=== PATIENT | female | born 1990 | race Caucasian/White ===

== ENCOUNTER 2020-01-31 07:53 | Outpatient (CLI) | payer MEDICAID ==
[2020-01-31 13:34] LABS: BASOPHILS % (AUTO) 0.7 %; EOSINOPHILS # (AUTO) 0.1 10^3/uL (0.0-0.7); LYMPHOCYTES # (AUTO) 2.2 10^3/uL (1.5-3.5); LYMPHOCYTES % (AUTO) 36.5 %; MEAN CORPUSCULAR HEMOGLOBIN 31.4 pg (27.0-31.0); MEAN CORPUSCULAR VOLUME 95.1 fL (81.0-99.0); MEAN PLATELET VOLUME 10.9 fL (7.9-10.8); MONOCYTES # (AUTO) 0.4 10^3/uL (0.0-1.0); MONOCYTES % (AUTO) 7.1 %; NEUTROPHILS # (AUTO) 3.3 10^3/uL (1.5-6.6); NEUTROPHILS % (AUTO) 54.4 %; PLT - PLATELET COUNT 235 10^3/uL (130-450); RED BLOOD COUNT 4.46 10^6/uL (4.20-5.40); RED CELL DISTRIBUTION WIDTH 12.2 % (12.0-15.0); WHITE BLOOD COUNT 6.1 x10^3/uL (4.8-10.8)
[2020-01-31 13:41] LABS: ALBUMIN 4.4 g/dL (3.2-5.5); ALBUMIN/GLOBULIN RATIO 1.8 (1.0-2.2); BILIRUBIN,TOTAL 0.9 mg/dL (0.2-1.0); CALCIUM 9.1 mg/dL (8.5-10.3); CREATININE 0.8 mg/dL (0.4-1.0); TOTAL PROTEIN 6.8 g/dL (6.7-8.2)
== END 2020-01-31 07:54 | disposition home or self-care (01) ==
LOC: LAB.S 07:53
PROVIDERS: ATTEND Registered Nurse
DX: F90.9 Attention-deficit hyperactivity disorder, unspecified type (principal); F41.9 Anxiety disorder, unspecified; F32.9 Major depressive disorder, single episode, unspecified
CPT/HCPCS: 36415; 80050

== ENCOUNTER 2020-02-29 08:00 | Outpatient (CLI) | payer MEDICAID | END 2020-02-29 23:59 | disposition home or self-care (01) | LOC: LAB.R 08:00 | PROVIDERS: ATTEND Physician Assistant | DX: R30.0 Dysuria (principal) | CPT/HCPCS: 87086 ==

== ENCOUNTER 2022-01-19 12:39 | Outpatient (CLI) | payer OTHER ==
[2022-01-19 13:08] LABS: BASOPHILS % (AUTO) 0.3 %; EOSINOPHILS # (AUTO) 0.1 10^3/uL (0.0-0.7); EOSINOPHILS % (AUTO) 0.8 %; HCT - HEMATOCRIT 39.9 % (37.0-47.0); HGB - HEMOGLOBIN 13.7 g/dL (12.0-16.0); LYMPHOCYTES # (AUTO) 2.6 10^3/uL (1.5-3.5); LYMPHOCYTES % (AUTO) 29.6 %; MEAN CORPUSCULAR HEMOGLOBIN 30.9 pg (27.0-31.0); MEAN CORPUSCULAR HGB CONC 34.3 g/dL (32.0-36.0); MEAN CORPUSCULAR VOLUME 90.1 fL (81.0-99.0); MEAN PLATELET VOLUME 9.7 fL (7.9-10.8); MONOCYTES # (AUTO) 0.4 10^3/uL (0.0-1.0); MONOCYTES % (AUTO) 5.1 %; NEUTROPHILS # (AUTO) 5.5 10^3/uL (1.5-6.6); PLT - PLATELET COUNT 222 10^3/uL (130-450); RED BLOOD COUNT 4.43 10^6/uL (4.20-5.40); RED CELL DISTRIBUTION WIDTH 11.9 % (12.0-15.0); WHITE BLOOD COUNT 8.7 x10^3/uL (4.8-10.8)
[2022-01-20 04:09] LABS: HBsAG SCREEN Negative (Negative); HCV AB <0.1 s/co ratio (0.0-0.9)
[2022-01-20 08:10] LABS: RPR Non Reactive (Non Reactive); VARICELLA-ZOSTER AB IGG 671 index (Immune >165)
[2022-01-20 09:09] LABS: HIV SCREEN 4TH GENERATION Non Reactive (Non Reactive)
== END 2022-01-19 12:40 | disposition home or self-care (01) ==
LOC: LAB 12:39
PROVIDERS: ATTEND Nurse Practitioner Obstetrics & Gynecology
DX: Z36.89 Encounter for other specified antenatal screening (principal); Z84.81 Family history of carrier of genetic disease
CPT/HCPCS: 36415; 81220; 81243; 81244; 81329; 85025; 85210; 86592; 86762; 86787; 86803; 86850; 86900; 86901; 87340; 87389

== ENCOUNTER 2022-04-20 06:57 | Outpatient (CLI) | payer BC, OTHER ==
--- NOTE | 2022-04-20 14:26 | Ultrasound Report ---
PROCEDURE: OB Detailed Eval INDICATIONS: SUPERVISION OF OUTSIDE/PRIOR DATING DATA: Last menstrual period (LMP): 11/10/2021. LMP-based estimated date of delivery (PATI): 08/17/2022. First dating scan (date and location): 01/11/2022, provider's office. Estimated date of delivery (PATI) from first dating scan: 08/13/2022. The below data below was generated using the ultrasound PATI of 08/13/2022 TECHNIQUE: Real-time scanning was performed of the fetus, with image documentation and biometric measurements. Endovaginal scanning: Not performed COMPARISON: None FINDINGS: General: A single living intrauterine gestation is present. Presentation: Breech Placenta: Placental position is posterior, without previa. Posterior placenta is 2.5 cm from the in ternal cervical os on transabdominal imaging. Amniotic fluid index: 13.3 cm, largest pocket is 3.63 cm. Normal for gestational age. heart rate: 150 beats per minute. Maternal cervical canal: Closed and 4.3 cm long; normal length is 2.5 cm or more. biometrics: Biparietal diameter: 5.74 cm, 23 weeks, 4 days Head circumference: 22.1 cm, 24 weeks, 1 day Abdominal circumference: 19.9 cm, 24 weeks, 4 days Femur length: 4.3 cm, 24 weeks, 0 days Estimated gestational age from initial scan: 23 weeks, 4 days. Composite gestational age from present scan: 24 weeks, 0 days Estimated weight and percentile: 678 g, 75th percentile Measurement variability in biometric dating: +/- 10 days from 12-20 weeks gestation, +/- 2 weeks from 20-30 weeks gestation, +/- 3 weeks at 30 weeks gestation or later. Anatomic survey: Neuro: Ventricles are normal at less than 10 mm. Cisterna magna is normal at 3-11 mm. Cerebellum i s normal in size and morphology. Nuchal skin fold: At the upper limits of normal measuring 5.96 mm. Face: Nose and lips, facial profile are normal. Spine: No evidence for spina bifida. Heart: 4-chambered heart is present, with normal ventricular outflow tracts. Diaphragm: Diaphragm is intact. Stomach: Left-sided stomach is present. Kidneys: No hydronephrosis. Normal is less than 5 mm in 2nd trimester, less than 7 mm in 3rd trimester. Cord: 3 vessel cord has orthotopic insertion. Bladder: Normal in size. Extremities: All 4 extremities are visualized. Subtle findings of diffuse body wall skin thickening and subcutaneous edema. IMPRESSION: 1. Single living intrauterine with appropriate growth compared to the clinical gestational age. 2. Findings of borderline nuchal skin fold thickening and subtle findings of possible mild hydr ops. Correlate with karyotyping and consider MFM consult and repeat ultrasound for confirmation . 3. No other anomalies are identified. Reviewed by: Alma Hennessy MD on 04/20/2022 2:24 PM PST Approved by: Alma Hennessy MD on 04/20/2022 2:24 PM PST Station ID: [id number]
== END 2022-04-20 06:58 | disposition home or self-care (01) ==
LOC: DI 06:57
PROVIDERS: ATTEND Nurse Practitioner Obstetrics & Gynecology
DX: Z36.89 Encounter for other specified antenatal screening (principal); O35.8XX0 Maternal care for other (suspected) fetal abnormality and damage, not applicable or unspecified; Z3A.24 24 weeks gestation of pregnancy

== ENCOUNTER 2022-05-16 12:50 | Outpatient (CLI) | payer OTHER ==
[2022-05-16 13:12] LABS: HCT - HEMATOCRIT 38.6 % (37.0-47.0); HGB - HEMOGLOBIN 13.3 g/dL (12.0-16.0); MEAN CORPUSCULAR HEMOGLOBIN 30.6 pg (27.0-31.0); MEAN CORPUSCULAR HGB CONC 34.5 g/dL (32.0-36.0); MEAN CORPUSCULAR VOLUME 88.9 fL (81.0-99.0); MEAN PLATELET VOLUME 10.4 fL (7.9-10.8); RED BLOOD COUNT 4.34 10^6/uL (4.20-5.40); RED CELL DISTRIBUTION WIDTH 12.4 % (12.0-15.0); WHITE BLOOD COUNT 11.6 x10^3/uL (4.8-10.8)
== END 2022-05-16 12:51 | disposition home or self-care (01) ==
LOC: LAB.R 12:50
PROVIDERS: ATTEND Nurse Practitioner Obstetrics & Gynecology
DX: Z34.81 Encounter for supervision of other normal pregnancy, first trimester (principal); Z13.1 Encounter for screening for diabetes mellitus
CPT/HCPCS: 81599; 82950; 85027

== ENCOUNTER 2022-08-22 15:08 | Inpatient (IN) | payer OTHER, MEDICAID ==
[2022-08-22] MEDS ORDERED: lidocaine 1% 20 ML MDV ID PRN (15:40)
[2022-08-22] MEDS ORDERED: miSOPROStoL 200 MCG TABLET BC PRN (15:40)
[2022-08-22] MEDS ORDERED: SODIUM CHLORIDE FLUSH 0.9% 10 ML SYRINGE IVP PRN (15:40)
[2022-08-22] MEDS ORDERED: METHYLERGONOVINE 0.2 MG/ML VIAL IM PRN (15:40)
[2022-08-22] MEDS ORDERED: OXYTOCIN/SODIUM CHLORIDE 500 ML IV PRN (15:40)
[2022-08-22] MEDS ORDERED: TRANEXAMIC ACID IN NACL 1,000 MG/100 ML BAG IV PRN (15:40)
[2022-08-22] MEDS ORDERED: OXYTOCIN 10 UNIT/ML VIAL IM PRN (15:40)
[2022-08-22] MEDS ORDERED: CARBOPROST TROMETHAMINE 250 MCG/ML AMP IM PRN (15:40)
--- NOTE | 2022-08-22 15:48 | HISTORY & PHYSICAL EXAMINATION ---
Admit History - Visit Reason Visit Reason: Membranes rupture - : 1 Parity: 0 Premature: 0 Ectopic: 0 : 0 Care: positive: [facility] Risk/History: positive: None Complications This : positive: None Smoking Status: Never smoker - Mother's Labs Mother's Blood Type: positive: B Mother's RH: positive: Positive GBS: positive: Group B Step Negative Rubella Status: positive: Immune Review of Systems - Constitutional Constitutional: denies: Fatigue, Fever, Chills, Malaise - Eyes Eyes: denies: Blurred vision, Spots in vision, Dipolpia - Cardiovascular Cariovascular: denies: Irregular heart rate, Palpitations, Chest pain, Edema - Respiratory Respiratory: denies: Cough, Wheezing, SOB at rest - Gastrointestinal Gastrointestinal: denies: Abdominal pain, Abdominal distention, Constipation, Diarrhea, Nausea, Vomiting - Genitourinary Genitourinary: denies: Dysuria, Frequency - Integumentary Integumentary: denies: Rash, Pruritis - Neurological Neurological: denies: Headache - Psychiatric Psychiatric: denies: Depression, Anxiety - Hematologic/Lymphatic Hematologic/Lymphatic: denies: Anemia Physical - Abdominal Exam Contraction Intensity: positive: Mild Uterine Resting Tone: positive: Soft - Monitoring Heart Rate Baseline: 120 Strip Review: positive: Category I - Presentation Presentation: positive: Vertex - Vaginal Exam Membranes: positive: Membranes ruptured Dilation (in cm): 3 Effacement (%): 70 Station: positive: -3 Cervical Position: positive: Posterior - Speculum Exam Speculum Exam Performed: positive: No Findings: positive: Gross leak Plan for Labor - Plan For Labor I expect patient to be DC'd or transferred within 96 hours.: Yes Plan for Labor: HPI: This 32yo @ 40.5wks gestation by LMP c/w 8.6wk U/S who presents TO [facility] with c/o vaginal leakage of fluid which began at 2200 last evening and was noted to be a moderate amount of clear fluid. She opted to stay home and rest. She walked much of the morning and states when she was walking her contractions seemed to increase in both frequency and intensity but would then stop as soon as she was no longer walking. She denies vaginal bleeding and she reports +FM. SVE upon arrival /-3, posterior, soft and vertex with grossly ruptured membranes. Contractions palpate mild intermittently with soft resting tone. She has been a patient of [facility] for the duration of her which has remained uncomplicated with the exception of mild nuchal fold thickening which was noted on FAS. She had negative genetic screening and an MFM referral was initiated and they did additional imaging which was WNL. She will be admitted to [facility] for active management. She is supported by her Hector today. 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 SAB x0. Last pap 2019 WNL, No hx of abnormals. Medical Hx: Anxiety/depression Surgical Hx: Tonsillectomy/adenoidectomy age 8 Family Hx: no significant Meds: PNV Allergies: None known Social: Single, lives with partner Mat who is a teacher in [place]. Works as an SENIOR BUSINESS DEVELOPMENT ANALYST at [email or web address] she has her CNM degree. No tobacco, ETOH or recreational drug use. Caffeine intake -minimal. course: B positive, antibody negative Rubella immune, varicella immune Genetic screening - negative; CF neg, SMA neg, Fragile X neg FAS WNL with the exception of borderline nuchal fold thickening (5.96 mm) and subtle findings of possible mild hydrops. Size c/w dating (EFW 75%tile). 3VC. F/u U/S with MFM WNL. No further f/u indicated. Influenza vaccine - 12/2021 COVID vaccine - x 2 with 2 booster (most recent booster 01/2022) Tdap 05/2022 GBS negative Physical Exam: Normocephalic, atraumatic Heart RRR w/o M/G/R Lungs CTAB Abdomen gravid, soft, nontender EFW 3600g FHR baseline 120, moderate variability, + accels, no decels Contractions palpate mild intermittently with soft resting tone SVE /-3, posterior, soft and vertex. Grossly ruptured membranes - clear fluid Bilateral LE's trace edema Mood is good Assessment: 32yo @ 40.5wks gestation by LMP c/w 8.6wk U/S PROM FHR Category I GBS negative Plan: Admit to [facility] for active management of PROM. Continuous monitoring. Initiate pitocin for induction of labor with titration per protocol. Jacuzzi PRN. Nitrous oxide PRN. Epidural per maternal request. Anticipate .
[2022-08-22] MEDS ORDERED: OXYTOCIN/SODIUM CHLORIDE 500 ML IV SCH (16:00)
[2022-08-22] MEDS: LACTATED RINGERS 1,000 ML IV SCH (16:46)
[2022-08-22 17:03] LABS: BASOPHILS % (AUTO) 0.2 %; EOSINOPHILS % (AUTO) 0.3 %; HCT - HEMATOCRIT 35.7 % (37.0-47.0); HGB - HEMOGLOBIN 11.5 g/dL (12.0-16.0); LYMPHOCYTES # (AUTO) 2.1 10^3/uL (1.5-3.5); LYMPHOCYTES % (AUTO) 20.7 %; MEAN CORPUSCULAR HEMOGLOBIN 27.8 pg (27.0-31.0); MEAN CORPUSCULAR HGB CONC 32.2 g/dL (32.0-36.0); MEAN CORPUSCULAR VOLUME 86.4 fL (81.0-99.0); MONOCYTES # (AUTO) 0.7 10^3/uL (0.0-1.0); MONOCYTES % (AUTO) 7.3 %; NEUTROPHILS # (AUTO) 7.1 10^3/uL (1.5-6.6); PLT - PLATELET COUNT 160 10^3/uL (130-450); RED BLOOD COUNT 4.13 10^6/uL (4.20-5.40); RED CELL DISTRIBUTION WIDTH 13.3 % (12.0-15.0)
[2022-08-22] MEDS: SODIUM CHLORIDE FLUSH 0.9% 10 ML SYRINGE IVP SCH (19:47)
[2022-08-23] MEDS ORDERED: ONDANSETRON 4 MG/2 ML VIAL IVP PRN ×3 (01:10→16:28)
[2022-08-23] MEDS ORDERED: ROPIVACAINE 0.2% 200 MG/100 ML BAG EP ONE (02:15)
[2022-08-23] MEDS: LACTATED RINGERS 1,000 ML IV SCH ×2 (02:47→19:30)
[2022-08-23] MEDS ORDERED: ePHEDrine 50 MG/ML VIAL IVP PRN ×2 (02:58→16:28)
[2022-08-23] MEDS ORDERED: NALOXONE 0.4 MG/ML VIAL IVP PRN ×3 (02:58→16:47)
[2022-08-23] MEDS ORDERED: NALBUPHINE 10 MG/ML AMP IVP PRN (02:58)
[2022-08-23] MEDS ORDERED: ROPIVACAINE 0.2% 200 MG/100 ML BAG EP PRN (02:58)
[2022-08-23] MEDS ORDERED: METOCLOPRAMIDE 10 MG/2 ML VIAL IVP PRN ×2 (02:58→16:28)
[2022-08-23] MEDS ORDERED: diphenhydrAMINE INJ 50 MG/ML VIAL IVP PRN (02:58)
--- NOTE | 2022-08-23 03:04 | ANESTHESIA ---
Pre-Anesthesia VS, & Labs - Diagnosis term labor, IUP - Procedure epidural for Vital Signs: Temp Pulse Resp BP Pulse Ox O2 Flow Rate 36.6 C 63 16 101/56 L 97 08/22/22 21:30 08/22/22 21:30 08/22/22 21:30 08/22/22 21:30 08/22/22 21:30 Height: 5 ft 8 in Weight (kg): 89.811 kg Body Mass Index: 30.1 BMI Classification: Obese - NPO Last Fluid Intake: t/o noc Last Food Intake: full dinner - Is Patient ?: Yes - Lab Results Current Lab Results: Laboratory Tests 08/22/22 16:52: Blood Type B POSITIVE, Antibody Screen NEGATIVE 08/22/22 16:52: WBC 10.0, RBC 4.13 L, Hgb 11.5 L, Hct 35.7 L, MCV 86.4, MCH 27.8, MCHC 32.2, RDW 13.3, Plt Count 160, MPV 13.0 H, Neut # (Auto) 7.1 H, Lymph # (Auto) 2.1, [place] # (Auto) 0.7, Eos # (Auto) 0.0, Baso # (Auto) 0.0, Absolute Nucleated RBC 0.00, Nucleated RBC % 0.0 Lab results reviewed: Yes Fish Bones: 08/22/22 16:52 Home Medications and Allergies Active Medications Carboprost Tromethamine (Carboprost Tromethamine 250 Mcg/Ml Amp) 250 mcg IM Q15M PRN PRN Reason: Step 4: Hemorrhage protocol Stop: 08/27/22 15:42 Diphenhydramine HCl (Diphenhydramine Inj 50 Mg/Ml Vial) 12.5 - 25 mg IVP Q6HR PRN PRN Reason: ITCHING Ephedrine Sulfate (Ephedrine 50 Mg/Ml Vial) 5 mg IVP Q5M PRN PRN Reason: For SBP<100;give until SBP>100 Oxytocin/Sodium Chloride (Pitocin/Sodium Chloride) 500 mls @ 999 mls/hr IV PRN PRN; Protocol PRN Reason: POST- HEMORR PREVENTION Stop: 08/27/22 15:42 Tranexamic Acid (Tranexamic 1,000 Mg/100ml-Nacl) 1,000 mg in 100 mls @ 600 mls/hr IV .ONCE PRN PRN Reason: EBL >1200mL and within 3hr Stop: 08/27/22 15:42 Lactated Ringer's (Lr) 1,000 mls @ 100 mls/hr IV .Q10H BHANU Last Admin: 08/22/22 16:46 Dose: 100 mls/hr Oxytocin/Sodium Chloride (Pitocin/Sodium Chloride) 500 mls @ 2 mls/hr IV TITR BHANU; Protocol Last Titration: 08/22/22 23:45 Dose: 8 milliunit/min, 8 mls/hr Ropivacaine (Naropin 0.2%) 200 mg in 100 mls @ 0 mls/hr EP PRN PRN; Protocol PRN Reason: PAIN Lidocaine HCl (Lidocaine 1% 20 Ml Mdv) 20 ml ID .ONCE PRN PRN Reason: PERINEAL REPAIR Stop: 08/27/22 15:42 Methylergonovine Maleate (Methylergonovine 0.2 Mg/Ml Vial) 0.2 mg IM .ONCE PRN PRN Reason: Step 2: Hemorrhage protocol Stop: 08/27/22 15:42 Metoclopramide HCl (Metoclopramide 10 Mg/2 Ml Vial) 10 mg IVP Q6HR PRN PRN Reason: Nausea / Vomiting Misoprostol (Misoprostol 200 Mcg Tablet) 800 mcg BC .ONCE PRN PRN Reason: Step 3: Hemorrhage protocol Stop: 08/27/22 15:42 Nalbuphine HCl (Nalbuphine 10 Mg/Ml Amp) 2.5 - 5 mg IVP Q4H PRN PRN Reason: ITCHING Naloxone HCl (Naloxone 0.4 Mg/Ml Vial) 0.1 mg IVP Q2M PRN PRN Reason: RR<8 Ondansetron HCl (Ondansetron 4 Mg/2 Ml Vial) 4 mg IVP Q4HR PRN PRN Reason: Nausea / Vomiting Ondansetron HCl (Ondansetron 4 Mg/2 Ml Vial) 4 mg IVP Q6HR PRN PRN Reason: Nausea / Vomiting Oxytocin (Oxytocin 10 Unit/Ml Vial) 10 unit IM .ONCE PRN PRN Reason: Step one: If no IV access Stop: 08/27/22 15:42 Sodium Chloride (Sodium Chloride Flush 0.9% 10 Ml Syringe) 10 ml IVP 0100,0 900,1700 BHANU Last Admin: 08/22/22 19:47 Dose: Not Given Sodium Chloride (Sodium Chloride Flush 0.9% 10 Ml Syringe) 10 ml IVP PRN PRN PRN Reason: NEEDED PER PROVIDER ORDERS Allergies/Adverse Reactions: Allergies Allergy/AdvReac Type Severity Reaction Status Date / Time No Known Drug Allergies Allergy Verified 08/22/22 15:50 Anes History & Medical History - Anesthetic History Anesthesia Complications: reports: No previous complications Family history of Anesthesia Complications: Denies Family history of Malignant Hyperthermia: Denies - Medical History Smoking Status: Never smoker - Obstetrical History : 1 Parity: 0 Events: reports: None Complications: reports: None Exam General: Alert, Oriented x3, Cooperative Dental: WNL Respiratory: No respiratory distress Cardiovascular: Regular rate Neurological: Normal speech Mental/Cognitive Status: Alert/Oriented X3, Normal for patient Cognitive Status: Within normal limits Plan Anesthesia Type: Epidural Consent for Procedure(s) Verified and Reviewed: Yes Code Status: Attempt Resuscitation ASA classification: 2-Mild systemic disease Is this case an emergency?: No
[2022-08-23] MEDS: SODIUM CHLORIDE FLUSH 0.9% 10 ML SYRINGE IVP SCH (04:06)
[2022-08-23] MEDS ORDERED: diphenhydrAMINE INJ 50 MG/ML VIAL IVP ONE (06:05)
--- NOTE | 2022-08-23 06:12 | PROVIDER PROGRESS NOTE ---
Labor Progress Note - Uterine Monitoring Uterine Monitoring Mode: positive: External toco Contraction Frequency (min/apart): 2-3 Contraction Intensity: positive: Strong Uterine Resting Tone: positive: Soft - Monitoring Monitor Mode: positive: External ultrasound Heart Rate Baseline: 120 Heart Rate Variability: positive: Moderate (6-25 bmp) Accelerations: positive: Present, 15x15 Decelerations: positive: None - Vaginal Exam Dilation (in cm): 8 Effacement (%): 80 Station: 0 Cervical Position: Posterior - Labor Progress Note Labor Progress Note/Additional Text: S: Feeling comfortable with her epidural in place. She has been able to dose off intermittently but is feeling rather tired. Her mood is good. Her is supportive at the bedside. O: FHR baseline 120s, moderate variability, + accels, no decels Contractions palpate strong every 2-3 minutes with soft resting tone. SVE 8/80/0, posterior. Vertex. RN and reports mild edema to cervix anteriorly. Pitocin at 10mU/mL SROM x 31 hours - afebrile A: 32yo @ 40.6wks gestation PROM FHR Category I Active labor P: Continue active management with pitocin per protocol. Continuous monitoring. Benadryl IVP x once Type and cross x 2 units secondary to increased pp hemorrhage risk due to pitocin IOL and prolonged rupture of membranes. Encouraged rotation in bed on peanut ball. Anticipate .
--- NOTE | 2022-08-23 10:25 | PROVIDER PROGRESS NOTE ---
Labor Progress Note - Uterine Monitoring Uterine Monitoring Mode: positive: External toco Contraction Frequency (min/apart): 2-5 Contraction Intensity: positive: Strong Uterine Resting Tone: positive: Soft - Monitoring Monitor Mode: positive: External ultrasound Heart Rate Baseline: 120 Heart Rate Variability: positive: Moderate (6-25 bmp) Accelerations: positive: Present, 15x15 Decelerations: positive: Early, Variable, Intermittent (<50% x20 min) Strip Review: positive: Category II - Vaginal Exam Dilation (in cm): 10 Effacement (%): 100 Station: 1 - Labor Progress Note Labor Progress Note/Additional Text: S: Patient comfortable with her epidural. She is feeling very tired and weak and she desires to labor down and drink some juice to see if she can get some energy back. Her epidural is very dense and she is having difficulty feeling exactly where she needs to push as well. She is currently laboring down in left lateral exaggerated runner's position. O: FHR baseline 120, moderate variability, + accels, intermittent variable decelerations. Overall heart rate is reassuring Contractions palpate strong every 2-5 minutes with soft resting tone SVE c/c/+1 with insufficient pushing effort x 1 hour Pitocin @ 10mU/mL A: 32yo @ 40.6wks gestation Prolonged rupture of membranes (36 hours) FHR Category II - overall reassuring GBS negative P: Pt desires to labor down x 1 hour as long as baby is tolerating it. Anesthesia notified to turn down dose of epidural secondary to dense anesthesia and poor pushing effort. Continuous monitoring. Encouraged position changes in bed on peanut ball.
[2022-08-23] MEDS ORDERED: DEXTROSE 5%-LACTATED RINGERS 1,000 ML IV SCH (11:00)
[2022-08-23] MEDS ORDERED: ceFAZolin 2 GM in SODIUM CHLORIDE 0.9% MINIBAG 100 ML IV ONE (14:38)
[2022-08-23] MEDS ORDERED: CITRIC ACID/SODIUM CITRATE 15 ML UDC PO ONE (14:39)
--- NOTE | 2022-08-23 14:52 | PROVIDER PROGRESS NOTE ---
Labor Progress Note - Uterine Monitoring Uterine Monitoring Mode: positive: External toco Contraction Frequency (min/apart): 2-5 Contraction Intensity: positive: Strong Uterine Resting Tone: positive: Soft - Monitoring Monitor Mode: positive: External ultrasound Heart Rate Baseline: 140 Heart Rate Variability: positive: Moderate (6-25 bmp) Accelerations: positive: Present, 15x15 Decelerations: positive: None Strip Review: positive: Category I - Vaginal Exam Dilation (in cm): 10 Effacement (%): 100 Station: 1 - Labor Progress Note Labor Progress Note/Additional Text: S: Patient has been actively pushing for an additional 2 hours following our 2.5 hour laboring down. She has made no change in station since onset of the second stage. The patient is starting to become tired and frustrated with her lack of progress. She feels like she is doing everything she can to move the process forward. She has attempted hands and knees, side lying, squatting, and reclined. O: FHR baseline 140s, moderate variability, + accels, no decels Contractions palpate strong every 2-5 minutes with soft resting tone. SVE c/c/+1 and vertex. Light meconium amniotic fluid. Pitocin at 14mU/mL A: 32yo @ 40.6wks gestation by LMP Arrest of descent FHR Category I Prolonged rupture of membranes P: Consult with physician who presents to the bedside for evaluation. Physician consults patient for delivery secondary to arrest of descent. Care handed to referral management liaison physician who accept medical care of the patient.
[2022-08-23] MEDS ORDERED: AZITHROMYCIN 250 MG TABLET PO ONE (15:18)
[2022-08-23] MEDS ORDERED: OXYTOCIN 10 UNIT/ML VIAL ONE (15:26)
[2022-08-23] MEDS ORDERED: LIDOCAINE-PF 2% 10 ML AMP SUBQ ONE ×2 (15:26→15:40)
[2022-08-23] MEDS ORDERED: ePHEDrine 50 MG/ML VIAL IVP ONE (15:29)
[2022-08-23] MEDS ORDERED: ONDANSETRON 4 MG/2 ML VIAL ONE (15:33)
[2022-08-23] MEDS ORDERED: PROMETHAZINE 25 MG/1 ML VIAL ONE (15:51)
[2022-08-23] MEDS ORDERED: fentaNYL 100 MCG/2 ML VIAL ONE (15:53)
[2022-08-23] MEDS ORDERED: LIDOCAINE-MPF 2% 5 ML VIAL ONE (15:53)
[2022-08-23] MEDS ORDERED: ROPIVACAINE 0.5% PF 20 ML VIAL ONE (16:02)
[2022-08-23] MEDS ORDERED: DEXAMETHASONE 4 MG/ML VIAL ONE (16:09)
[2022-08-23] MEDS ORDERED: LACTATED RINGERS 1,000 ML IV ONE (16:27)
[2022-08-23] MEDS ORDERED: HYDROmorphone 0.5 MG/0.5 ML SYRINGE IVP PRN (16:28)
[2022-08-23] MEDS ORDERED: fentaNYL 100 MCG/2 ML VIAL IVP PRN (16:28)
[2022-08-23] MEDS ORDERED: MORPHINE 2 MG/ML CARPUJECT IVP PRN (16:28)
[2022-08-23] MEDS ORDERED: ATROPINE ABBOJECT 1 MG/10 ML SYRINGE IVP PRN (16:28)
--- NOTE | 2022-08-23 16:39 | ANESTHESIA POST OP EVALUATION ---
Anesthesia Post Eval - Post Anesthesia Eval Vitals: Last Vital Signs Temp 36.4 C L 08/23/22 16:31 Pulse 101 H 08/23/22 16:31 Resp 20 08/23/22 16:31 BP 138/81 H 08/23/22 16:31 Pulse Ox 100 08/23/22 16:31 O2 Flow Rate CV Function Including HR & BP: Stable Pain Control: Satisfactory Nausea & Vomiting: Negative Mental Status: Baseline Respiratory Status: Airway Patent Hydration Status: Satisfactory Anesthesia Complications: None
[2022-08-23] MEDS ORDERED: OXYTOCIN/SODIUM CHLORIDE 500 ML IV PRN (16:47)
[2022-08-23] MEDS ORDERED: WITCH HAZEL/GLYCERIN 1 PAD TOP PRN (16:53)
[2022-08-23] MEDS ORDERED: HYDROCORTISONE 1% CREAM 28 GM TUBE TOP PRN (16:53)
[2022-08-23] MEDS ORDERED: LACTATED RINGERS 1,000 ML IV SCH (17:00)
--- NOTE | 2022-08-23 17:05 | DELIVERY NOTE ---
Delivery Note - Labor Labor: positive: Augmented by oxytocin - Delivery Method Delivery Method: positive: Primary - Presentation Presentation: positive: Vertex, AYAD - left occiput anterior - Nuchal Cord Nuchal Cord: positive: None - Anesthetic Anesthetic Type: - Amniotic Fluid Description Amniotic Fluid Description: positive: Light meconium - Delivery Outcome Delivery Outcome: positive: Livebirth - : positive: Bulb syringe, Stimulated, Warmed, [place] used [place] sex: positive: Female - Cord Cord: positive: 3 vessels - Placenta Placenta: positive: Expressed - Estimated Blood Loss Estimated Blood Loss (in cc): 600 - Post Delivery Events Post Delivery Events: positive: Unplanned - Delivery Comments (Free Text/Narrative) Delivery Comments (Free Text/Narrative): See operative report for uncomplicated primary section.
--- NOTE | 2022-08-23 17:09 | OPERATIVE REPORT ---
Operative Report - General Admit Date: 08/22/22 Procedure Date: 08/23/22 Planned Procedure: Primary section Pre-Op Diagnosis: 32yo 40.5w, Premature/prolonged rupture membranes, Failure to descend Post Op Diagnosis: 32yo 40.5w, Premature/prolonged rupture membranes, Failure to descend - Procedure Note Primary Surgeon: Violeta Morfin DO Secondary Surgeon: Justa Lowe CNM; assistance requested for retraction and safe completion Anesthesia Provider: Franca Villanueva CRNA Anesthesia Technique: Epidural Pathology: None Estimated Blood Loss (mL): 600 Indications: 32yo 40.5w, Premature/prolonged rupture membranes, Failure to descend Findings: Viable female Normal appearing uterus, tubes, ovaries Complications: None - Other Other Information/Narrative: Under epidural anaesthetic with a Bhatt catheter inserted, the patient was prepped and draped in the usual sterile fashion in the supine position with a leftward tilt. A Pfannensteil incision was made. The incision was carried down to the fascia with sharp dissection and cautery. The fascia was incised transversely and dissected off the rectus muscle using sharp dissection. Electrocautery was used for hemostasis. The peritoneum was opened taking care not to injure the bladder. The vesicouterine peritoneum was dissected off the lower uterine segment. The lower segment was assessed and a low transverse incision was made. The uterine incision was extended bluntly. The fetus was presenting as a vertex. The head was delivered atraumatically but with a good effort to elevate head of the pelvis. The rest of the body then followed. After one minute of delayed cord clamping, the cord was clamped twice and cut and the baby transferred to the warmer, awaiting the pediatric staff. Cord blood obtained. The placenta was then delivered with assistance. The uterus was explored and was empty of all tissue. The uterus was exteriorized for better visualization. The uterine incision was then closed in two layers with 0- Monocryl. The first layer was locking and the second was imbricating. Tubes and ovaries were examined and appeared normal. The fascia was closed with 0-Vicryl in a running unlocked fashion. Subcutaneous layer reapproximated with 2-0 Chromic. The skin was then reapproximated with 3-0 Monocryl. At the end of the procedure all sponges, instruments, and sharps were counted and correct. Estimated blood loss was 600cc. The patient and baby were taken to the recovery in stable condition.
[2022-08-23] MEDS: KETOROLAC 30 MG/ML VIAL IVP SCH (17:53)
[2022-08-23] MEDS ORDERED: LACTATED RINGERS 1,000 ML ONE (18:00)
[2022-08-23] MEDS: ACETAMINOPHEN 500 MG TABLET PO SCH (18:46)
[2022-08-23] MEDS: oxyCODONE 5 MG TABLET PO PRN ×2 (18:47→23:03)
[2022-08-24] MEDS: KETOROLAC 30 MG/ML VIAL IVP SCH ×2 (00:28→06:07)
[2022-08-24] MEDS: SODIUM CHLORIDE FLUSH 0.9% 10 ML SYRINGE IVP SCH ×2 (00:31→06:08)
[2022-08-24] MEDS: DOCUSATE SODIUM 100 MG CAPSULE PO SCH ×3 (02:20→20:49)
[2022-08-24] MEDS: ACETAMINOPHEN 500 MG TABLET PO SCH ×3 (03:21→20:49)
[2022-08-24] MEDS: oxyCODONE 5 MG TABLET PO PRN ×5 (03:22→22:12)
[2022-08-24 06:18] LABS: HCT - HEMATOCRIT 32.7 % (37.0-47.0); HGB - HEMOGLOBIN 10.8 g/dL (12.0-16.0); MEAN CORPUSCULAR HEMOGLOBIN 28.7 pg (27.0-31.0); MEAN PLATELET VOLUME 12.5 fL (7.9-10.8); RED BLOOD COUNT 3.76 10^6/uL (4.20-5.40); RED CELL DISTRIBUTION WIDTH 13.7 % (12.0-15.0)
--- NOTE | 2022-08-24 08:47 | PROVIDER PROGRESS NOTE ---
Subjective - Prog Note Date Prog Note Date: 08/24/22 Prog Note Time: 08:45 - Subjective Subjective: Subjective Patient reports she is doing well. Lochia appropriate. Denies heavy bleeding. Ambulating. Pelvic and abdominal pain well-controlled. Tolerating oral intake. Diet: Regular. Voiding without difficulty. Passing flatus. Denies BM. Patient is bonding with baby in room Breast feeding going well. Denies feeling lightheaded, dizzy or excessively fatigued. Objective General: Alert, oriented, no apparent distress. Cardiovascular: Regular rate. Regular rhythm. Lungs: No increased work of breathing. Abdomen: Uterus firm. Below umbilicus. No guarding or rebound. Appropriate tenderness Extremities: No pain on palpation. No cords palpated. Distal pulses intact. Incision: Clean, dry, and intact. Bandage removed today Assessment and Plan Postoperative/ day 1. -Routine care -Anticipate discharge tomorrow Objective - Vital Signs/Intake & Output Vital Signs: Vital Signs x48h Temp Pulse Resp BP Pulse Ox 08/24/22 05:45 98.2 F 58 L 18 111/67 96 08/24/22 01:30 98.8 F 71 18 112/59 L 96 Intake & Output: Intake & Output 08/21/22 08/22/22 08/23/22 08/24/22 23:59 23:59 23:59 23:59 Intake Total 374.856 2970.667 1239.583 Output Total 440 3900 Balance 765.312 1883.667 -2660.417 - Lab Results Fish Bones: 08/24/22 06:12 Other Labs: Lab Results x24hrs 08/24/22 Range/Units 06:12 WBC 14.0 H (4.8-10.8) x10^3/uL RBC 3.76 L (4.20-5.40) 10^6/uL Hgb 10.8 L (12.0-16.0) g/dL Hct 32.7 L (37.0-47.0) % MCV 87.0 (81.0-99.0) fL MCH 28.7 (27.0-31.0) pg MCHC 33.0 (32.0-36.0) g/dL RDW 13.7 (12.0-15.0) % Plt Count 141 (130-450) 10^3/uL MPV 12.5 H (7.9-10.8) fL
[2022-08-24] MEDS ORDERED: AZITHROMYCIN INJ 500 MG in SODIUM CHLORIDE 0.9% 250 ML IV SCH (09:00)
[2022-08-24] MEDS: SIMETHICONE CHEW 80 MG TABLET PO SCH ×2 (10:08→18:19)
[2022-08-24] MEDS: IBUPROFEN 600 MG TABLET PO SCH ×2 (12:37→18:19)
[2022-08-25] MEDS: IBUPROFEN 600 MG TABLET PO SCH ×3 (00:06→12:31)
[2022-08-25] MEDS: oxyCODONE 5 MG TABLET PO PRN ×4 (02:01→15:56)
[2022-08-25] MEDS: ACETAMINOPHEN 500 MG TABLET PO SCH ×2 (04:31→12:31)
[2022-08-25] MEDS: SIMETHICONE CHEW 80 MG TABLET PO SCH ×3 (07:45→12:32)
--- NOTE | 2022-08-25 09:05 | Discharge Plan ---
Discharge Plan Problem Reviewed?: Yes Disposition: Home, Self Care Condition: Good Prescriptions: Docusate Sodium 100Mg Capsule [Colace 100Mg Capsule] 100 - 200 mg PO BID PRN #60 cap PRN Reason: Constipation Ibuprofen [Motrin] 600 mg PO Q6H PRN #30 tab PRN Reason: Pain oxyCODONE [Roxicodone] 5 mg PO Q4H PRN #20 tablet PRN Reason: Severe Pain Diet: Regular Activity Restrictions: Additional Comments Instruction Topics: C Section Dc, Depression No Smoking: If you smoke, Please STOP! Call for help. Follow-up with: Rosio Mckay ARNP [Primary Care Provider] - Vioelta Morfin DO [Provider Admit Priv/Credential] -
--- NOTE | 2022-08-25 09:05 | DISCHARGE SUMMARY ---
Discharge Summary Admit Date: 08/22/22 Discharge Date: 08/25/22 Discharging Provider: Anton Still MD Condition at Discharge: Good Discharge Disposition: 01 Home, Self Care - DIAGNOSES Admission Diagnoses: Prelabor rupture of membranes 40 weeks gestation Discharge Diagnoses with Status of Each Condition: Prolonged, prelabor rupture of membranes 40 weeks gestation Failure to descend Status post primary low-transverse section Delivery of live murphy LGA - HPI History of Present Illness: Subjective Patient reports she is doing well. Lochia appropriate. Denies heavy bleeding. Ambulating. Pelvic and abdominal pain well-controlled. Tolerating oral intake. Diet: Regular. Voiding without difficulty. Passing flatus. Denies BM. Patient is bonding with baby in room Breast feeding going well. Denies feeling lightheaded, dizzy or excessively fatigued. Objective General: Alert, oriented, no apparent distress. Cardiovascular: Regular rate. Regular rhythm. Lungs: No increased work of breathing. Abdomen: Uterus firm. Below umbilicus. No guarding or rebound. Extremities: No pain on palpation. No cords palpated. Distal pulses intact. Incision: Clean, dry, and intact. - HOSPITAL COURSE Hospital Course: Patient was admitted at 40 weeks gestation for prelabor rupture of membranes. She received oxytocin for augmentation and epidural for pain control. She progressed slowly to the second stage and then had arrest of the second stage. The [facility] is consulted and she underwent a primary low-transverse section that was uneventful. Postoperative course was uneventful and she was discharged on postoperative day 2. weight:4235 g, LGA - ALLERGIES Allergies/Adverse Reactions: Allergies Allergy/AdvReac Type Severity Reaction Status Date / Time No Known Drug Allergies Allergy Verified 08/22/22 15:50 - MEDICATIONS Home Medications: Ambulatory Orders Medication Instructions Recorded Confirmed Docusate Sodium 100Mg Capsule 100 - 200 mg PO BID PRN #60 cap 08/25/22 [Colace 100Mg Capsule] Ibuprofen [Motrin] 600 mg PO Q6H PRN #30 tab 08/25/22 oxyCODONE [Roxicodone] 5 mg PO Q4H PRN #20 tablet 08/25/22 - LABS Result Diagrams: 08/24/22 06:12 - FOLLOW UP Follow Up: Violeta Morfin in 1 week. - TIME SPENT Time Spent in Discharge (Minutes): 20
[2022-08-25] MEDS: DOCUSATE SODIUM 100 MG CAPSULE PO SCH (10:40)
[2022-08-25 14:31] VITALS: BP 131/77
--- NOTE | 2022-08-25 18:33 | Labor Flowsheet ---
Labor Flowsheet Datetime Report Generated by CPN: 08/25/2022 18:33 Datetime: 08/23/2022 18:40 Membranes Ruptured Date/Time: 08/21/2022 22:00 Membranes Rupture Method: Spontaneous Amniotic Fluid Amount: Moderate Datetime: 08/23/2022 14:53 Patient Care Comments: payan placed Anesthesia Comments: PRODUCT LISTER Aube dosing Pt Datetime: 08/23/2022 14:50 Communication Comments: Skin prepped with [place] Datetime: 08/23/2022 14:45 UTERINE ACTIVITY Monitor Mode: External Frequency (min): 4-5 Quality: Strong Duration (sec): 60-90 Pattern: Normal: <= 5 Contractions in 10 Minutes ASSESSMENT A Monitor Mode: External US FHR Baseline Rate : 135 Variability: Moderate 6-25 bpm Accelerations: 15X15 Decelerations: Variable Category: Category II Datetime: 08/23/2022 14:30 Resting Tone (Palpate): Relaxed Datetime: 08/23/2022 14:19 Patient Position/Activity: Left Tilt Datetime: 08/23/2022 14:16 VITAL SIGNS NBP Sys/Renee/Mean (mmHg): 128 : 71 : 86 Pulse: 93 LaborFlag: Labor Datetime: 08/23/2022 14:02 Vital Sign Comments: BP cuff moved to right arm. Datetime: 08/23/2022 14:00 SpO2 (%): 100 Datetime: 08/23/2022 13:58 MEDICATIONS Pitocin (milliunits): Discontinued Datetime: 08/23/2022 13:52 Exam by: Dr. [place]abyab Datetime: 08/23/2022 13:43 Respirations: 16 Temperature (C): 37.0 Datetime: 08/23/2022 13:41 Contraction Comments: Pt resting thru ctx Datetime: 08/23/2022 13:22 Monitor Interventions for UA: [place] Adjusted Datetime: 08/23/2022 12:50 Amniotic Fluid Color: Light Meconium Membrane Comments: Passenger [place] notified Datetime: 08/23/2022 12:30 Stage of : Labor PAIN Pain Scale: 0 Pain Presence: None/Denies Datetime: 08/23/2022 11:56 VAGINAL EXAM Dilatation (cm): 10.0 Effacement (%): 100 Station: 1 Datetime: 08/23/2022 11:15 Pitocin Checklist: At Least 1 Acceleration of 15 bpm x 15 Seconds in 30 Minutes or Adequate Variabi lity; No More than 1 Late Deceleration Occurred in Past 30 Minutes; No More than 2 Variable Decelerat ions > 60 Seconds in Duration and decreasing >60 bpm in 30 minutes; No More than 5 Uterine Contractio ns in 10 Minutes for any 20 Minute Interval; Uterus Palpates Soft between Contractions PATIENT CARE IV/Blood Work: IV Infusing per Order Datetime: 08/23/2022 10:23 Pain Assessment Comments: Anesthesia notified of request to turn down LAURA Datetime: 08/23/2022 10:14 COMMUNICATION Communication: RN at Bedside Datetime: 08/23/2022 09:57 Provider Reviewed Strip: Yes Datetime: 08/23/2022 06:44 Comments: return to moderate variability Datetime: 08/23/2022 06:01 Provider Notified (Name): A Mynor CNM Datetime: 08/23/2022 04:29 Pain Coping: Sleeping Datetime: 08/23/2022 03:50 Notification Reason: Status Update; Status; Labor Status Datetime: 08/23/2022 03:30 Vaginal Bleeding: None Cervix, Consistency: Soft Cervix, Position: Midposition Datetime: 08/23/2022 03:28 Monitor Interventions for FHR: Ultrasound Adjusted I/O Interventions: Payan Cath Inserted Datetime: 08/23/2022 02:35 Epidural Procedure: Test Dose Datetime: 08/23/2022 02:26 PROCEDURE TIME OUT Procedure Verify: Correct Patient Identity; Correct Side and Site are Marked; Accurate Procedure Co nsent Form; Agreement on Procedure to be Done; Correct Patient Position ANESTHESIA Anesthesia Plans: Epidural Epidural Positioning: Sitting Datetime: 08/23/2022 02:00 Pain Type: Cramping Datetime: 08/23/2022 00:58 Pain Location: Abdomen Datetime: 08/23/2022 00:23 Medication Comments: nitrous gas TEACHING Instructional Method: Verbal; Patient Instructed; Family/Support Person Instructed Teaching Comments: use and precautions with nitrous gas for pain manegment Datetime: 08/22/2022 23:00 Comfort Measures: Breathing/Relaxation; Rocking Chair; Family Support Datetime: 08/22/2022 22:26 Plan of Care: Plan of Care Discussed Datetime: 08/22/2022 21:15 Intensity IUP (mmHg): 40-80 Datetime: 08/22/2022 20:16 FHR Baseline Changes: No Baseline Change Datetime: 08/22/2022 19:36 Membrane Status: Ruptured Amniotic Fluid Odor: Normal MATERNAL ASSESSMENT Level of Consciousness: Alert DTR's/Clonus: DTRs 1+ Headache: Denies Breath Sounds, Left: Clear and Equal Breath Sounds, Right: Clear and Equal Nausea/Vomiting: Denies RUQ Epigastric Pain: Denies Datetime: 08/22/2022 16:30 Temperature Route: Oral
== END 2022-08-25 16:30 | disposition home or self-care (01) | DRG 788 ==
LOC: WFO 15:08 → FBP 15:11 → WFO 15:39 → FBP 15:40
PROVIDERS: ADMIT Nurse Practitioner Obstetrics & Gynecology; ATTEND Obstetrics & Gynecology
PROC: 3E033VJ Introduction of Other Hormone into Peripheral Vein, Percutaneous Approach (ICD-10-PCS; 2022-08-22)
PROC: 10D00Z1 Extraction of Products of Conception, Low, Open Approach (ICD-10-PCS; principal; 2022-08-23 15:00)
DX: O42.12 Full-term premature rupture of membranes, onset of labor more than 24 hours following rupture (principal); O77.0 Labor and delivery complicated by meconium in amniotic fluid; Z3A.40 40 weeks gestation of pregnancy; Z37.0 Single live birth; O32.4XX0 Maternal care for high head at term, not applicable or unspecified; O99.214 Obesity complicating childbirth; O62.1 Secondary uterine inertia
CPT/HCPCS: 36415; 85025; 85027; 86850; 86900; 86901; 86920; A9270; J1200; J2795; J7120